=== PATIENT | female | born 1990 | race Caucasian/White ===

== ENCOUNTER 2017-04-12 20:04 | Emergency (ER) | payer SELFPAY ==
[~2017-04-12] VITALS: Ht 160 cm; Wt 54.4 kg
[2017-04-12 20:27] VITALS: BP 106/66
--- NOTE | 2017-04-12 20:33 | NUR ---
uli dunn a/w bed, amb, vss ermd noted
--- NOTE | 2017-04-12 21:17 | NUR ---
PATIENT PRESENTS TO ED WITH n/v, constipation,spotting for a week, 10 weeks, lmp, 10.31 . SKIN IS PINK/WARM/DRY; AAOX4 WITH EVEN AND STEADY GAIT; LUNGS CLEAR BL; HR EVEN AND REGULAR; PT DENIES ANY FEVER, CP, SOB, OR COUGH AT THIS TIME; PATIENT STATES PAIN OF 0/10 AT THIS TIME; VSS; PATIENT POSITIONED FOR COMFORT; HOB ELEVATED; BEDRAILS UP X2; BED DOWN. ER MD MADE AWARE OF PT STATUS.
--- NOTE | 2017-04-12 21:33 | NUR ---
Patient discharged with v/s stable. Written and verbal after care instructions given and explained. Patient alert, oriented and verbalized understanding of instructions. Ambulatory with steady gait. All questions addressed prior to discharge. ID band removed. Patient advised to follow up with PMD. Rx of REGLAN 10MG given. Patient educated on indication of medication including possible reaction and side effects. Opportunity to ask questions provided and answered.
[2017-04-12 21:34] VITALS: BP 116/72
== END 2017-04-12 21:33 | disposition home or self-care (01) ==
LOC: MED 20:04
DX: O21.9 Vomiting of pregnancy, unspecified (principal); Z88.8 Allergy status to other drugs, medicaments and biological substances
CPT/HCPCS: 76801; 99284; Q0092